=== PATIENT | male | born 1990 | race Caucasian/White ===

== ENCOUNTER 2022-02-27 02:45 | Outpatient (CLI) | payer MEDICAID, SELFPAY ==
[2022-02-27 09:01] LABS: HCT 51.5 % (40.0-50.0); HGB 16.5 g/dL (13.5-17.5); MCV 90.5 fL (80-95); MPV 10.3 fL (8.0-11.0); Platelet Count 276 10^3/uL (130-400); RBC 5.69 10^6/uL (4.36-5.78); RDW 14.8 % (11.8-14.1); RDW-SD 49.6 fL; WBC 10.08 10^3/uL (4.4-10.8)
[2022-02-27 09:28] LABS: Hemoglobin A1C 5.6 % (<5.7)
[2022-02-27 10:20] LABS: ALT 24 U/L (16-63); AST 14 U/L (15-37); Albumin 3.6 g/dL (3.4-5.0); Alkaline Phosphatase 57 U/L (46-116); Anion Gap 6.4 mmol/L (3-11); BUN 16 mg/dL (7-18); Bilirubin, Total 0.3 mg/dL (0.2-1.0); CO2 29.6 mmol/L (21.0-32.0); CREATININE 0.8 mg/dL (0.70-1.30); Calcium 8.7 mg/dL (8.5-10.1); Calculated LDL 164 mg/dL (<100); Chloride 105 mmol/L (98-107); Cholesterol 219 mg/dL (<200); Glucose 104 mg/dL (74-106); HDL Cholesterol 32 mg/dL (40-60); Potassium 4.6 mmol/L (3.5-5.1); Sodium 141 mmol/L (136-145); Total Protein 7.2 g/dL (6.4-8.2); Triglyceride 116 mg/dL (<150)
== END 2022-02-27 02:46 | disposition home or self-care (01) ==
PROVIDERS: PCP Nurse Practitioner; Referring Provider Nurse Practitioner; Visit Provider Nurse Practitioner
DX: E66.9 Obesity, unspecified (principal)
CPT/HCPCS: 36415; 80053; 80061; 85027; 83036